=== PATIENT | female | born 1970 | race American Indian/Alaskan Native ===

== ENCOUNTER 2020-09-14 17:25 | Emergency (ER) | payer OTHER ==
--- NOTE | 2020-09-14 18:14 | Event Note ---
ED Screening Note ED Screening Note: states having vertigo dizziness, room spinning +n/v took two tablets of meclizine OTC did not help no headache no vision changes no numbness no weakness no fever no diarrhea no dysuria no dark urine no CP no SOB PMHx none no allergies to meds This initial assessment/diagnostic orders/clinical plan/treatment(s) is/are subject to change based on patients health status, clinical progression and re- assessment by fellow clinical providers in the ED. Further treatment and workup at subsequent clinical providers discretion. Patient/guardian urged not to elope from the ED as their condition may be serious if not clinically assessed and managed. Initial orders include: labs, UA, EKG, CT head
[2020-09-14 18:15] VITALS: BP 130/78
[2020-09-14 18:56] LABS: Basophils % (Auto) 0.4 % (0.0-1.8); Eosinophils % (Auto) 0.1 % (0.0-4.3); Hematocrit 46.4 % (30.3-42.9); Hemoglobin 15.6 gm/dl (10.1-14.3); Lymphocytes # (Auto) 1.1 K/mm3 (1.2-5.4); Lymphocytes % (Auto) 17.6 % (13.4-35.0); Mean Corpuscular HGB Conc 34 % (30-34); Mean Corpuscular Volume 93 fl (79-97); Monocytes # (Auto) 0.4 K/mm3 (0.0-0.8); Platelet Count 248 K/mm3 (140-440); Red Blood Count 4.96 M/mm3 (3.65-5.03); Red Cell Distribution Width 13.6 % (13.2-15.2)
--- NOTE | 2020-09-14 19:02 | Cat Scan Report ---
NONENHANCED CT SCAN OF THE HEAD: INDICATION / CLINICAL INFORMATION: 50 years Female; MAIN. Dizziness TECHNIQUE: Routine CT head without contrast. All CT scans at this location are performed using CT dos e reduction for ALARA by means of automated exposure control. COMPARISON: None. 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 Right cerebral hemisphere, brainstem and cerebellar hemispheres normal; no focal lesion in the left t emporal lobe and left parietal lobe CRANIOCERVICAL JUNCTION: No significant abnormality. ORBITS: No significant abnormality of visualized orbits. SINUSES / MASTOIDS: No significant abnormality of the visualized paranasal sinuses or mastoid air tha ls. ADDITIONAL FINDINGS: None. IMPRESSION: Left frontal lobe porencephalic cyst Signer Name: Alysha Craven MD Signed: 09/14/2020 6:57 PM Workstation Name: [id number]
[2020-09-14 19:18] LABS: Alanine Aminotransferase 12 units/L (7-56); Albumin 4.5 g/dL (3.9-5); Blood Urea Nitrogen 13 mg/dL (7-17); Calcium 10.2 mg/dL (8.4-10.2); Hemolysis Index 17
[2020-09-14 19:19] LABS: BUN/Creatinine Ratio 19
== END 2020-09-14 18:12 | disposition left against medical advice (07) ==
LOC: ED 17:25
DX: R42 Dizziness and giddiness (principal); Z53.21 Procedure and treatment not carried out due to patient leaving prior to being seen by health care provider
CPT/HCPCS: 36415; 70450; 80053; 82550; 83735; 85025; 93005

== ENCOUNTER 2022-04-25 12:36 | Emergency (ER) | payer OTHER ==
[2022-04-25 13:27] VITALS: BP 137/83
== END 2022-04-25 17:00 | disposition left against medical advice (07) ==
LOC: ED 12:36
DX: Z04.1 Encounter for examination and observation following transport accident (principal); Z53.21 Procedure and treatment not carried out due to patient leaving prior to being seen by health care provider